=== PATIENT | male | born 1965 | race Caucasian/White ===

== ENCOUNTER → 2017-01-02 | Outpatient (CLI) | payer BC ==
[~2017-01-02] VITALS: Ht 167.6 cm; Wt 98.8 kg
[2017-01-02 12:48] VITALS: BP 121/79; PULSE 64; Ht 167.6 cm; Wt 98.8 kg
== END | disposition home or self-care (01) ==
LOC: C.NEUR 12:03
PROVIDERS: ATTEND Internal Medicine Pulmonary Disease
DX: G47.33 Obstructive sleep apnea (adult) (pediatric) (principal)

== ENCOUNTER → 2018-01-01 | Outpatient (CLI) | payer BC ==
[~2018-01-01] VITALS: Ht 167.6 cm; Wt 95.6 kg
[2018-01-01 16:34] VITALS: BP 128/83; PULSE 80; Ht 167.6 cm; Wt 95.6 kg
== END | disposition home or self-care (01) ==
LOC: C.NEUR 15:05
PROVIDERS: ATTEND Physician Assistant Medical
DX: G47.33 Obstructive sleep apnea (adult) (pediatric) (principal); E66.9 Obesity, unspecified